=== PATIENT | male | born 1965 | race Caucasian/White ===

== ENCOUNTER 2021-02-27 08:55 | Emergency (ER) | payer BC ==
[~2021-02-27] VITALS: Ht 172.7 cm; Wt 80.0 kg
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
[2021-02-27 10:14] LABS: BASO # 0.2 x10^3/uL (0.0-0.2); BASO % 1 % (0-3); EOS % 0 % (0-3); HEMATOCRIT 38.9 % (39.0-53.0); HEMOGLOBIN 13.2 g/dL (13.0-17.5); LYMPH # 0.5 x10^3/uL (1.0-4.8); LYMPH % 3 % (24-48); MEAN CORPUSCULAR HEMOGLOBIN 33 pg (25-35); MEAN CORPUSCULAR HGB CONC 34 g/dL (31-37); MEAN CORPUSCULAR VOLUME 98 fL (79-100); MONO # 1.5 x10^3/uL (0.0-1.1); MONO % 8 % (0-9); NEUT # 16.6 x10^3uL (1.8-7.7); NEUT % 88 % (31-73); PLATELET COUNT 168 x10^3/uL (140-400); RED BLOOD COUNT 3.99 x10^6/uL (4.30-5.70); RED CELL DISTRIBUTION WIDTH 14.4 % (11.5-14.5); WHITE BLOOD COUNT 18.9 x10^3/uL (4.0-11.0)
[2021-02-27 10:35] LABS: PHOSPHORUS 2.9 mg/dL (2.6-4.7)
[2021-02-27 10:43] LABS: ALBUMIN 3.1 g/dL (3.4-5.0); ALBUMIN/GLOBULIN RATIO 0.8 (1.0-1.7); CALCIUM 8.4 mg/dL (8.5-10.1); CREATININE 1.1 mg/dL (0.7-1.3); GFR 69.2; POTASSIUM 4.3 mmol/L (3.5-5.1); TOTAL PROTEIN 6.9 g/dL (6.4-8.2)
[2021-02-27 11:00] VITALS: BP 137/84
[2021-02-27] MEDS ORDERED: CONTRAST GIVEN. MC PRN (11:00)
[2021-02-27] MEDS: IOHEXOL 300 MG/ML 75 ML VIAL. IV ONE (11:23)
--- NOTE | 2021-02-27 11:28 | EKG ---
[address] [address] Test Date: 2021-02-27 Test Time: 10:43:07 Pat Name: YSABEL GARCIA Department: Room: Gender: M Fisher Diving: PAPO : 1965 Requested By: NEREIDA AMBROSE Order Number: [id number] Reading MD: Ross Vasquez Measurements Intervals [place] Rate: 99 P: 47 IL: 170 QRS: 31 QRSD: 78 T: 222 QT: 344 QTc: 447 Interpretive Statements SINUS RHYTHM QRS(T) CONTOUR ABNORMALITY CONSIDER ANTEROSEPTAL INFARCT NON SPECIFIC ST-T WAVE CHANGES RI6.02 No previous ECG available for comparison Electronically Signed On 03-05-2021 10:26:20 CONVERTIBLE POWER SHOVEL OPERATOR by Ross Vasquez
--- NOTE | 2021-02-27 12:03 | RAD ---
EXAM: CT CHEST, ABDOMEN, AND PELVIS WITH CONTRAST INDICATION: Cough, leukocytosis, back pain COMPARISON: None TECHNIQUE: Helical CT imaging performed of the chest, abdomen and pelvis after administration of 75 m L intravenous contrast. Sagittal and coronal reformats were obtained. One or more of the following individualized dose reduction techniques were utilized for this examinat ion: 1. Automated exposure control 2. Adjustment of the mA and/or kV according to patient size 3. Use of iterative reconstruction technique. FINDINGS: CHEST: Thyroid gland and thoracic inlet: Normal. Heart and great vessels: The heart is normal in size. There is no pericardial effusion. There are cor onary artery calcifications. The thoracic aorta is normal in caliber. Mediastinum and magui: There are calcified mediastinal and hilar lymph nodes. Lungs and pleura: There are small bilateral pleural effusions with adjacent atelectasis in the lung b ases. Multiple bilateral calcified granulomas mild centrilobular emphysema. There is a 5 mm noncalcif ied nodule in the left upper lobe (image 61, series 4). 3 mm noncalcified nodule in the anterior righ t upper lobe (image 37, series 4). Chest wall and axillae: No axillary lymphadenopathy. Chest wall is unremarkable. Bones: There is an old severe compression fracture of T7 post vertebroplasty with extravasation of shira ne cement is seen in the right T7 pedicle and along the right lateral aspect of the canal at T7. Ther e is kyphosis centered at T7. No acute fracture of the thoracic spine ABDOMEN AND PELVIS: Liver: Liver is normal in size. There is no focal liver lesion. Gallbladder/Biliary Tree: Probable sludge in the gallbladder. Bile ducts are normal Pancreas: The pancreas is edematous with mild surrounding fluid/fat stranding. There is no organized fluid collection. The pancreas enhances homogeneously. Spleen: No splenomegaly. There are calcified splenic granulomas. Adrenal Glands: Normal. Kidneys/Ureters/Bladder: Kidneys are normal in size and enhance symmetrically. No hydronephrosis. Ure ters are normal. There is moderate distention of the urinary bladder. No focal bladder wall thickenin g. Reproductive Organs: Prostate gland is normal. Stomach, small bowel, and colon: The stomach is normal. No small bowel obstruction. There is contrast in the normal caliber appendix and cecum. The colon is unremarkable. Vasculature: No aortic aneurysm. There is mild calcified aortoiliac atherosclerosis. Lymph Nodes: No lymphadenopathy. Peritoneum and retroperitoneum: Trace free fluid in the abdomen and pelvis. No free air. Bones: No acute osseous abnormality. Mild degenerative disc disease at L5-S1. CT LUMBAR SPINE: There are 5 nonrib-bearing lumbar vertebral bodies. No acute fracture. Alignment is normal. There is mild disc space narrowing at L5-S1. There is vacuum disc phenomenon seen in the L5-S1 disc space and within a central disc extrusion extending inferiorly from the disc space. No significant canal or lat eral recess narrowing, although evaluation is limited by CT. Bilateral foraminal narrowing at this le hakeem. No significant degenerative disc disease or evidence of canal or foraminal narrowing at the othe r levels. No significant facet arthrosis. Please see the above report for CT abdomen pelvis regarding the visualized portion of the abdomen and pelvis. Paraspinous musculature is normal. IMPRESSION: CT CHEST ABDOMEN PELVIS: 1. Uncomplicated acute pancreatitis. 2. Small bilateral pleural effusions and mild adjacent atelectasis in the lung bases. 3. There are a few small noncalcified pulmonary nodules measuring up to 5 mm. If the patient at high risk for lung cancer, and optional twelve-month follow-up CT could be obtained to further evaluate. 4. Moderate distention of the urinary bladder. 5. Probable sludge in the gallbladder. 6. Old T7 compression fracture post vertebroplasty. CT LUMBAR SPINE: 1. No acute osseous abnormality. 2. Mild degenerative disc disease at L5-S1 with a central disc extrusion extending inferiorly from th e disc space. No obvious canal or lateral recess narrowing seen by CT. Probable bilateral foraminal n arrowing at this level. Electronically signed by: Zuly Clark MD (02/27/2021 12:00 PM) [id number]
[2021-02-27 12:10] LABS: BARBITURATES NEG (NEG); BENZODIAZEPINES NEG (NEG); CANNABINOIDS NEG (NEG); COCAINE NEG (NEG); METHADONE NEG (NEG); OPIATES NEG (NEG); PHENCYCLIDINE NEG (NEG)
[2021-02-27 12:14] LABS: AMPHETAMINE/METHAMPHETAMINE NEG (NEG)
[2021-02-27 12:25] LABS: BILIRUBIN,URINE NEG (NEG); CLARITY,URINE CLEAR; COLOR,URINE YELLOW; GLUCOSE,URINE 100 mg/dL (NEG); UROBILINOGEN,URINE 0.2 mg/dL (0.2 mg/dL)
[2021-02-27 12:26] LABS: BACTERIA,URINE FEW /HPF (0-FEW); NITRITE,URINE POS (NEG); SQUAMOUS EPITHELIAL CELL,UR FEW /LPF
[2021-02-27] MEDS: IV NORMAL SALINE 1,000ML 1,000 ML IV ONE (12:35)
[2021-02-27 14:03] LABS: % BANDS 6 % (0-9); % LYMPHS 9 % (24-48); % MONOS 7 % (0-10); % SEGS 78 % (35-66); PLT ESTIMATE ADEQUATE (ADEQUATE)
[2021-02-27 15:03] LABS: CALCIUM 7.9 mg/dL (8.5-10.1); CREATININE 0.9 mg/dL (0.7-1.3); GFR 87.3; POTASSIUM 3.9 mmol/L (3.5-5.1)
[2021-02-27] MEDS: SODIUM CHLORIDE 3 % PREMIX 500 ML IV ONE (15:30)
== END 2021-02-27 16:52 | disposition short-term general hospital (02) ==
LOC: ER 08:55
DX: R41.82 Altered mental status, unspecified (principal); K85.90 Acute pancreatitis without necrosis or infection, unspecified; E87.1 Hypo-osmolality and hyponatremia
CPT/HCPCS: 36415; 70450; 71260; 72131; 74177; 80048; 80053; 80307; 81001; 82140; 82550; 82947; 83605; 83690; 83735; 83874; 83930; 84100; 84443; 85007; 85025; 85651; 86140; 87086; 93005; 96361; 96374; 99285; G0480; J3010; J3490; J7030; Q9967; 83935